=== PATIENT | male | born 1995 | race Caucasian/White ===

== ENCOUNTER 2016-08-15 00:43 | Emergency (ER) | payer BC ==
[~2016-08-15] VITALS: Ht 180.3 cm; Wt 83.9 kg
[2016-08-15 01:14] VITALS: BP_SYST 137
[2016-08-15 02:06] VITALS: BP_SYST 130
== END 2016-08-15 02:06 | disposition home or self-care (01) ==
LOC: SED 00:43
DX: M25.532 Pain in left wrist (principal); V00.131A Fall from skateboard, initial encounter; Y93.51 Activity, roller skating (inline) and skateboarding; Y99.8 Other external cause status; Y92.89 Other specified places as the place of occurrence of the external cause
CPT/HCPCS: 99284